=== PATIENT | male | born 1955 | race Two or more races ===

== ENCOUNTER 2017-09-20 11:58 | Emergency (ER) | payer MEDICAID ==
[~2017-09-20] VITALS: Ht 172.7 cm; Wt 78.9 kg
[2017-09-20 12:00] VITALS: BP 122/63
--- NOTE | 2017-09-20 12:10 | Emergency Room Report ---
History of Present Illness General Chief Complaint: Syncope Source: Patient, EMS Present Illness HPI Patient was at a druze with his brothers recent and felt that he was about to pass out. He became pale at that time. He denies any chest pain or palpitations during that time. He felt slight nausea and vomited. He lost consciousness for "a second". He got better after family gave Coke, orange juice and put ice packs around his head. Paramedics were summoned. They performed an EKG and orthostatics. Both were normal. An Accu-Chek was done which was 367. The patient has no history of diabetes in the past. He denies any headache. The patient had a similar episode when his brother was ill in the hospital in [place]. He was quite upset at seeing his brother being sick. The patient's been eating without difficulty. He doesn't feel thirsty. There' s been no fevers. Denies any abdominal pain, dysuria, rashes or headache. Is no extremity pain. He's had trouble sleeping for 25 days with his brother's illness. He's lost about 140 lbs recently. He had labs done in June and states his MD didn't tell him of any abnormalities. No melena, coffeegrounds, fevers, headache, rashes, extremity pain. Allergies: Coded Allergies: No Known Allergies (Unverified , 09/20/17) Patient History Past Medical History: see triage record Social History: Denies: smoking, alcohol use, drug use Social History Narrative with family - lives in [place] Reviewed Nursing Documentation: PMH: Agreed; PSxH: Agreed Nursing Documentation-PM Past Medical History: No History, Except For Hx Hypertension: Yes Review of Systems All Other Systems: negative except mentioned in HPI Physical Exam Vital Signs Date Time Temp Pulse Resp B/P (MAP) Pulse Ox O2 Delivery O2 Flow Rate FiO2 09/20/17 11:54 98.9 72 18 146/90 99 Room Air 99.0 Sp02 EP Interpretation: reviewed, normal General Appearance: well appearing, no apparent distress, GCS 15 Head: normocephalic Eyes: bilateral eye normal inspection, bilateral eye PERRL ENT: moist mucus membranes Neck: supple Respiratory: lungs clear, normal breath sounds Cardiovascular #1: regular rate, rhythm Cardiovascular #2: 2+ radial (R) Gastrointestinal: normal inspection, normal bowel sounds, non tender, no mass, non-distended Musculoskeletal: back normal, gait/station normal, normal range of motion Neurologic: alert, oriented x3, motor strength/tone normal, DTRs symmetric, sensory intact, cerebellar normal, normal gait, speech normal Psychiatric: mood/affect normal Skin: normal inspection, warm/dry Medical Decision Making Diagnostic Impression: Primary Impression: Syncope Qualified Codes: R55 - Syncope and collapse Additional Impression: New onset type 2 diabetes mellitus ER Course Patient presents with syncope after an upsetting event. Differential includes vasovagal, plain depletion, acute myocardial infarction, arrhythmia, orthostatic hypotension amongst others. Orthostatics were performed in the field and were negative. His blood sugars high and this might lead to find depletion. He needs to be evaluated with EKG, chest x-ray and labs. He will receive IV hydration. He has a nonfocal neurologic exam and denies headache therefore CT head is not indicated at this time. EKG without injury. Chest x-ray with aortic calcifications. Labs with hyperglycemia without acidosis. Troponin negative. Blood sugar in the 300s after IV hydration. Initial blood glucose by labs was 440. Insulin 10 units was given IV and the patient continued to receive IV hydration. An hour after IV insulin blood sugar was 263 by Accu-Chek. The patient is improved. I discussed the case with Dr. Doe. The patient to [facility] realizing that the patient needed advanced life support transfer. I discussed this with the patient and also his family. Laboratory Tests Test 09/20/17 12:10 White Blood Count 10.2 K/UL (4.8-10.8) Red Blood Count 4.83 M/UL (4.70-6.10) Hemoglobin 15.2 G/DL (14.2-18.0) Hematocrit 44.0 % (42.0-52.0) Mean Corpuscular Volume 91 FL (80-99) Mean Corpuscular Hemoglobin 31.5 PG (27.0-31.0) H Mean Corpuscular Hemoglobin Concent 34.5 G/DL (32.0-36.0) Red Cell Distribution Width 10.8 % (11.6-14.8) L Platelet Count 183 K/UL (150-450) Mean Platelet Volume 8.2 FL (6.5-10.1) Neutrophils (%) (Auto) 77.5 % (45.0-75.0) H Lymphocytes (%) (Auto) 16.1 % (20.0-45.0) L Monocytes (%) (Auto) 5.1 % (1.0-10.0) Eosinophils (%) (Auto) 0.8 % (0.0-3.0) Basophils (%) (Auto) 0.5 % (0.0-2.0) Prothrombin Time 11.0 SEC (9.30-11.50) Prothrombin Time INR 1.0 (0.9-1.1) PTT 21 SEC (23-33) L Urine Color Pale yellow Urine Appearance Clear Urine pH 6.5 (4.5-8.0) Urine Specific [place] 1.010 (1.005-1.035) Urine Protein 3+ (NEGATIVE) H Urine Glucose (UA) 4+ (NEGATIVE) H Urine Ketones 3+ (NEGATIVE) H Urine Occult Blood 3+ (NEGATIVE) H Urine Nitrite Negative (NEGATIVE) Urine Bilirubin Negative (NEGATIVE) Urine Urobilinogen Normal MG/DL (0.0-1.0) Urine Leukocyte Esterase Negative (NEGATIVE) Urine RBC 5-10 /HPF (0 - 0) H Urine WBC 0-2 /HPF (0 - 0) Urine Squamous Epithelial Cells Occasional /LPF Urine Bacteria Occasional /HPF (NONE) Sodium Level 134 MMOL/L (136-145) L Potassium Level 3.8 MMOL/L (3.5-5.1) Chloride Level 99 MMOL/L (98-107) Carbon Dioxide Level 26 MMOL/L (21-32) Anion Gap 9 mmol/L (5-15) Blood Urea Nitrogen 18 mg/dL (7-18) Creatinine 1.0 MG/DL (0.55-1.30) Estimate Glomerular Filtration Rate > 60 mL/min (>60) Glucose Level 441 MG/DL (74-106) H Calcium Level 8.8 MG/DL (8.5-10.1) Total Bilirubin 0.7 MG/DL (0.2-1.0) Aspartate Amino Transferase (AST) 21 U/L (15-37) Alanine Aminotransferase (ALT) 35 U/L (12-78) Alkaline Phosphatase 130 U/L (46-116) H Total Creatine Kinase 85 U/L (26-308) Troponin I 0.000 ng/mL (0.000-0.056) Pro-B-Type Natriuretic Peptide 101 pg/mL (0-125) Total Protein 7.2 G/DL (6.4-8.2) Albumin 3.3 G/DL (3.4-5.0) L Globulin 3.9 g/dL Albumin/Globulin Ratio 0.8 (1.0-2.7) L EKG Diagnostic Results Rate: normal Rhythm: NSR ST Segments: no acute changes Rhythm Strip Diag. Results EP Interpretation: yes Rhythm: NSR, no PVC's, no ectopy Chest X-Ray Diagnostic Results Chest X-Ray Diagnostic Results : Chest X-Ray Ordered: Yes # of Views/Limited/Complete: 1 View Indication: Other EP Interpretation: Yes Interpretation: no consolidation, no effusion, no pneumothorax, other - ca aorta Impression: Other Electronically Signed by: Electronically signed by Redd Chairez MD Last Vital Signs Date Time Temp Pulse Resp B/P (MAP) Pulse Ox O2 Delivery O2 Flow Rate FiO2 09/20/17 17:58 98.0 65 16 139/72 99 Room Air 98.0 Status: improved Disposition: XFER SHT-TRM HOSP Condition: Serious - but stable for transfer Redd Chairez M.D. Sep 20, 2017 12:10
[2017-09-20 12:42] LABS: BASOPHILS % (AUTO) 0.5 % (0.0-2.0); EOSINOPHILS % (AUTO) 0.8 % (0.0-3.0); HEMOGLOBIN 15.2 G/DL (14.2-18.0); LYMPHOCYTES % (AUTO) 16.1 % (20.0-45.0); MEAN CORPUSCULAR VOLUME 91 FL (80-99); MONOCYTES % (AUTO) 5.1 % (1.0-10.0); NEUTROPHILS % (AUTO) 77.5 % (45.0-75.0); PLATELET COUNT 183 K/UL (150-450); RED BLOOD COUNT 4.83 M/UL (4.70-6.10); RED CELL DISTRIBUTION WIDTH 10.8 % (11.6-14.8); WHITE BLOOD COUNT 10.2 K/UL (4.8-10.8)
[2017-09-20 12:43] LABS: APPEARANCE,URINE CLEAR; BILIRUBIN, URINE NEGATIVE (NEGATIVE); COLOR,URINE PALE YELLOW; GLUCOSE, URINE (UA) 4+ (NEGATIVE); KETONES,URINE 3+ (NEGATIVE); LEUKOCYTE ESTERASE ,URINE NEGATIVE (NEGATIVE); NITRITE,URINE NEGATIVE (NEGATIVE); PH,URINE 6.5 (4.5-8.0); PROTEIN,URINE 3+ (NEGATIVE); UROBILINOGEN,URINE NORMAL MG/DL (0.0-1.0)
[2017-09-20] MEDS ORDERED: BENAZEPRIL HCL40 MG ORAL (13:03)
[2017-09-20] MEDS ORDERED: PAXIL20 MG ORAL (13:03)
[2017-09-20] MEDS ORDERED: AMLODIPINE BESY10 MG ORAL (13:03)
[2017-09-20 13:05] LABS: ANION GAP 9 mmol/L (5-15); BLOOD UREA NITROGEN 18 mg/dL (7-18); CALCIUM 8.8 MG/DL (8.5-10.1); CARBON DIOXIDE 26 MMOL/L (21-32); CHLORIDE 99 MMOL/L (98-107); POTASSIUM 3.8 MMOL/L (3.5-5.1); SODIUM 134 MMOL/L (136-145)
[2017-09-20 13:16] LABS: ALANINE AMINOTRANSFERASE 35 U/L (12-78); ALBUMIN 3.3 G/DL (3.4-5.0); ALBUMIN/GLOBULIN RATIO 0.8 (1.0-2.7); ALKALINE PHOSPHATASE 130 U/L (46-116); ASPARTATE AMINO TRANSFERASE 21 U/L (15-37); BILIRUBIN,TOTAL 0.7 MG/DL (0.2-1.0); CREATINE KINASE 85 U/L (26-308)
[2017-09-20] MEDS ORDERED: Insulin Human Regular 100units/ml 3ml IV ONE (13:30)
[2017-09-20 13:44] VITALS: BP 137/84
--- NOTE | 2017-09-20 15:29 | Diagnostic Imaging Report ---
Indication: Dyspnea Comparison: None A single view chest radiograph was obtained. Findings: Cardiomediastinal appearance is within normal limits for age. Pulmonary vascularity is appropriate. The diaphragmatic contour is smooth and costophrenic angles are sharp. No pleural effusions are identified. The bones are unremarkable. Impression: No acute findings
[2017-09-20 15:40] VITALS: BP 120/82
[2017-09-20 17:35] VITALS: BP 139/72
[2017-09-20 17:58] VITALS: BP 139/72
--- NOTE | 2017-09-23 14:27 | Cardiology Report ---
APPROVED REPORT EKG Measurement Heart [id number] Normal sinus rhythm Normal ECG
== END 2017-09-20 18:00 | disposition short-term general hospital (02) ==
LOC: EDBD 11:58 → EMR 12:45
DX: R55 Syncope and collapse (principal); E11.9 Type 2 diabetes mellitus without complications; I10 Essential (primary) hypertension
CPT/HCPCS: 36415; 71045; 80053; 81003; 82550; 82962; 83880; 84484; 85025; 85610; 85730; 93005; 96361; 96374; 99283; J1815; 96360; 96375